=== PATIENT | female | born 1950 | race Hispanic/Latino ===

== ENCOUNTER 2020-06-02 17:59 | Observation (INO) | payer OTHER ==
[~2020-06-02] VITALS: Ht 162.6 cm; Wt 88.5 kg
[2020-06-02] MEDS ORDERED: NITROGLYCERIN 1GM/1 INCH PACKET TD ONE ×2 (18:27→19:22)
[2020-06-02] MEDS ORDERED: ASPIRIN 325 MG TABLET ONE (18:27)
[2020-06-02] MEDS ORDERED: ACETAMINOPHEN EXTRA STRENGTH 500 MG TABLET ONE ×2 (18:46→19:23)
[2020-06-02 18:55] LABS: BASOPHILS % (AUTO) 0.4 % (0.0-5.0); EOSINOPHILS % (AUTO) 1.1 % (0.0-8.0); HEMATOCRIT 33.9 % (42-54); LYMPHOCYTES % (AUTO) 19.7 % (21.0-51.0); MEAN CORPUSCULAR HGB CONC 32.7 g/dL (32.0-36.0); MEAN CORPUSCULAR VOLUME 91.6 fL (79-99); MONOCYTES % (AUTO) 8.2 % (3.0-13.0); NEUTROPHILS % (AUTO) 70.2 % (40.0-77.0); PLATELET COUNT (AUTO) 192 K/uL (130-400); RED CELL DISTRIBUTION WIDTH 13.2 % (11.0-15.5); WHITE BLOOD COUNT (AUTO) 9.2 K/uL (4.8-10.8)
[2020-06-02 19:10] LABS: CREATININE 1.6 mg/dL (0.5-1.5); POTASSIUM 4.2 mmol/L (3.5-5.1)
[2020-06-02 19:14] LABS: ALBUMIN 3.5 g/dL (3.5-5.0); BILIRUBIN,TOTAL 0.2 mg/dL (0.2-1.0); TOTAL PROTEIN, SERUM 7.3 g/dL (6.0-8.3)
[2020-06-02 19:31] LABS: APPEARANCE,URINE Clear (CLEAR); BILIRUBIN,URINE Negative (NEGATIVE); COLOR,URINE Yellow (YELLOW); GLUCOSE, URINE (UA) Negative (NEGATIVE); KETONES,URINE Negative (NEGATIVE); LEUKOCYTE ESTERASE ,URINE Negative (NEGATIVE); NITRATE,URINE Negative (NEGATIVE); OCCULT BLOOD,URINE Small (NEGATIVE); PROTEIN,URINE POS 1+ mg/dL (NEGATIVE); UROBILINOGEN,URINE 0.2 mg/dL (0.2-1.0)
[2020-06-02 19:41] LABS: INR 0.92 (0.85-1.15); PARTIAL THROMBOPLASTIN TIME 26.7 SEC (26.3-35.5)
[2020-06-02] MEDS ORDERED: ONDANSETRON HCL 4 MG/2 ML VIAL IV PRN (19:45)
[2020-06-02] MEDS ORDERED: NITROGLYCERIN 0.4 MG SL TAB SL PRN (19:45)
[2020-06-02] MEDS ORDERED: ACETAMINOPHEN 325 MG TAB PO PRN ×2 (19:45)
[2020-06-02] MEDS ORDERED: SODIUM CHLORIDE 0.9% 1000ML 1,000 ML IV SCH (20:00)
[2020-06-02 20:03] LABS: BACTERIA,URINE Rare /HPF (None Seen); MUCUS,URINE Few LPF (None Seen); SQUAMOUS EPITHELIAL CELL,UR Few /HPF (0-2); WBC,URINE 0-1 /HPF (0-1)
[2020-06-02 20:14] LABS: HEMOGLOBIN A1C 7.4 % (4.0-6.0)
[2020-06-02 20:24] LABS: THYROID STIMULATING HORMONE 4.18 uIU/mL (0.36-3.74)
[2020-06-02] MEDS ORDERED: ATORVASTATIN CALCIUM 20 MG TABLET PO SCH (21:00)
[2020-06-03] VITALS: BP 165/97
[2020-06-03] MEDS ORDERED: MULT-1203 PO (00:14)
[2020-06-03] MEDS ORDERED: VIT1TABL66 PO (00:14)
[2020-06-03] MEDS ORDERED: VIT1CAPS PO (00:14)
[2020-06-03] MEDS ORDERED: FOLI0.4T2 PO (00:14)
[2020-06-03] MEDS ORDERED: PNEUMOCOCCAL VACCINE POLYVALENT 0.5 ML/VIAL [PPV] ONE (00:24)
[2020-06-03] MEDS ORDERED: FLU VACC QS2020-21(6MOS UP)/PF 60 MCG/0.5 ML ML IM ONE ×2 (00:24→02:15)
[2020-06-03] MEDS: METOPROLOL TARTRATE 25 MG TAB PO SCH ×2 (00:44→09:33)
[2020-06-03] MEDS ORDERED: PNEUMOCOCCAL VACCINE POLYVALENT 0.5 ML/VIAL [PPV] IM ONE (02:15)
[2020-06-03 04:00] VITALS: BP 126/73
[2020-06-03 05:16] LABS: BASOPHILS % (AUTO) 0.5 % (0.0-5.0); EOSINOPHILS % (AUTO) 2.6 % (0.0-8.0); HEMATOCRIT 31.3 % (36-48); MEAN CORPUSCULAR HGB CONC 32.6 g/dL (32.0-36.0); MEAN CORPUSCULAR VOLUME 92.1 fL (79-99); MONOCYTES % (AUTO) 8.6 % (3.0-13.0); PLATELET COUNT (AUTO) 188 K/uL (130-400); RED CELL DISTRIBUTION WIDTH 13.2 % (11.0-15.5); WHITE BLOOD COUNT (AUTO) 7.6 K/uL (4.8-10.8)
[2020-06-03] MEDS: INSULIN HUMULIN R 100 UNIT/ML 3ML SQ SCH ×2 (05:42→11:14)
[2020-06-03 05:43] LABS: CREATININE 1.5 mg/dL (0.5-1.5); POTASSIUM 4.1 mmol/L (3.5-5.1)
[2020-06-03 08:00] VITALS: BP 148/87
[2020-06-03] MEDS ORDERED: FAMOTIDINE 20MG TAB 20 MG TAB PO SCH (09:00)
[2020-06-03] MEDS ORDERED: ENOXAPARIN SODIUM 40 MG/0.4 ML SYRINGE SQ SCH (09:00)
[2020-06-03] MEDS ORDERED: ASPIRIN 325 MG TABLET PO SCH (09:00)
[2020-06-03] MEDS ORDERED: ASPIRIN 81MG TAB.CHEW ONE (09:28)
[2020-06-03 11:00] VITALS: BP 125/80
[2020-06-03] MEDS ORDERED: IBUP-2076 PO (15:22)
[2020-06-03] MEDS ORDERED: OMEP20CA12 PO (15:22)
[2020-06-03 16:00] VITALS: BP 145/87
== END 2020-06-03 17:16 | disposition home or self-care (01) ==
LOC: EDSEX 17:59 → EDH 17:59 → EDHIP 19:43 → 4BH 23:42
PROVIDERS: ADMIT Family Medicine; ATTEND Family Medicine
DX: R07.89 Other chest pain (principal); M94.0 Chondrocostal junction syndrome [Tietze]; E11.9 Type 2 diabetes mellitus without complications; N17.9 Acute kidney failure, unspecified; Z90.49 Acquired absence of other specified parts of digestive tract; Z23 Encounter for immunization; V89.2XXA Person injured in unspecified motor-vehicle accident, traffic, initial encounter; Y92.410 Unspecified street and highway as the place of occurrence of the external cause; Y99.8 Other external cause status
CPT/HCPCS: 36415 ×2; 71045; 71250; 74150; 80048; 80053; 80061; 81001; 82550; 82948 ×3; 83036; 84443; 84484 ×3; 85025 ×2; 85610; 85730; 90471; 90732; 93005 ×3; 96372; 99285; G0008; G0378 ×21; J1650; Q2035; 90686